=== PATIENT | male | born 1950 | race Native Hawaiian/Other Pacific Islander ===

== ENCOUNTER 2018-12-02 06:55 | Emergency (ER) | payer OTHER ==
[~2018-12-02] VITALS: Ht 167.6 cm; Wt 59.0 kg
[2018-12-02 07:06] VITALS: TEMP 97.6
[2018-12-02 07:51] LABS: PLATELET COUNT 202 K/uL (142-355)
[2018-12-02 08:01] LABS: SODIUM 143 mmol/L (136-145)
[2018-12-02 09:14] VITALS: BP 132/68
== END 2018-12-02 09:15 | disposition home or self-care (01) ==
LOC: ED 06:55
PROVIDERS: Emergency Medicine
DX: R42 Dizziness and giddiness (principal)
CPT/HCPCS: 80053; 82550; 84484; 84550; 85027; 93005; 96374; 99284; J2405

== ENCOUNTER 2018-12-10 07:39 | Outpatient (CLI) | payer OTHER | END 2018-12-10 19:53 | disposition home or self-care (01) | LOC: CT 07:39 | DX: R91.1 Solitary pulmonary nodule (principal) | CPT/HCPCS: Q9963 ==

== ENCOUNTER 2019-09-26 13:40 | Outpatient (CLI) | payer OTHER | END 2019-09-26 20:19 | disposition home or self-care (01) | LOC: MAMMO 13:40 | DX: N64.59 Other signs and symptoms in breast (principal); N63.0 Unspecified lump in unspecified breast ==